=== PATIENT | female | born 1950 | race Asian ===

== ENCOUNTER 2017-03-28 15:54 | Inpatient (IN) ==
[2017-03-28] MEDS ORDERED: PHENERGAN IV PRN (18:18)
[2017-03-28] MEDS ORDERED: ANTIVERT PO PRN (18:20)
[2017-03-28] MEDS ORDERED: SODIUM CHLORIDE 0.9% INJ PRN (18:31)
[2017-03-28] MEDS: SODIUM CHLORIDE 0.9% INJ SCH (18:51)
[2017-03-28] MEDS: PROTONIX IV SCH (18:51)
[2017-03-28] MEDS: NS 1,000 ML IV SCH (18:51)
[2017-03-28 19:18] LABS: MANUAL DIFF NEEDED? NO
[2017-03-28 19:31] LABS: BASO% 0.1 % (0.0-0.8); EOS# 0.01 X1000 (0.0-0.7); EOS% 0.1 % (0.0-10.0); HEMATOCRIT 41.6 % (37.0-47.0); HEMOGLOBIN 14.2 g/dL (12.0-16.0); IMM GRAN# 0.02 X1000 (0.0-0.04); IMM GRAN% 0.3 % (0.0-0.5); LYMPH# 2.09 X1000 (1.2-3.4); LYMPH% 31.1 % (20.5-51.1); MCH 30.8 PG (27-31); MCHC 34.1 g/dL (33-37); MCV 90.2 FL (81-99); MONO% 8.9 % (1.7-9.3); MPV 10.4 FL (7.4-10.4); NEUT% 59.5 % (42.2-75.2); PLT 228 X1000 (130-400); RBC 4.61 XMIL (4.2-5.4)
[2017-03-28 19:45] LABS: AGAP 16; ALBUMIN 4.8 g/dL (3.5-5.0); ALKALINE PHOSPHATASE 74 U/L (32-104); BUN 12 mg/dL (8-22); CALCIUM 9.2 mg/dL (8.8-10.2); CHLORIDE 102 mmol/L (98-107); COSMO 280; GOT 17 U/L (10-30); GPT 17 U/L (10-36); SODIUM 141 mmol/L (136-145); TCO2 23 mmol/L (25-35); TOTAL BILIRUBIN 0.45 mg/dL (0.20-1.00); TOTAL PROTEIN 7.8 g/dL (6.3-8.3)
[2017-03-28] MEDS ORDERED: PEPCID PO SCH (22:45)
[2017-03-29] MEDS: NS 1,000 ML IV SCH ×2 (06:24→18:00)
[2017-03-29] MEDS ORDERED: LOVENOX SUBQ SCH (09:00)
[2017-03-29 14:51] VITALS: BP 133/66
[2017-03-29] MEDS: PROTONIX IV SCH (18:00)
[2017-03-29] MEDS: SODIUM CHLORIDE 0.9% INJ SCH (18:00)
[2017-03-29] MEDS ORDERED: MAXALT MLT PO ONE (18:23)
== END 2017-03-29 18:50 | disposition home or self-care (01) ==
LOC: DIRADM → OBSVTOIN 15:54 → 4N 16:34
PROVIDERS: ADMIT Internal Medicine; ATTEND Internal Medicine